=== PATIENT | male | born 1940 | race Caucasian/White ===

== ENCOUNTER 2023-03-30 16:39 | Outpatient (CLI) | payer MEDICARE, BC | END 2023-03-30 16:40 | disposition home or self-care (01) | LOC: CSHRAD 16:39 | PROVIDERS: ATTEND Internal Medicine Cardiovascular Disease | DX: R06.02 Shortness of breath (principal); J90 Pleural effusion, not elsewhere classified | CPT/HCPCS: 71046 ==